=== PATIENT | male | born 1945 | race African-American/Black ===

== ENCOUNTER 2017-01-21 21:17 | Emergency (ER) | payer BC ==
[2017-01-21 22:16] LABS: BASOPHILS 0.3 %; BASOPHILS ABSOLUTE 0.02 10/3/uL (0.0-0.16); EOSINOPHILS 3.6 %; EOSINOPHILS ABSOLUTE 0.28 10/3/uL (0.0-0.53); ER CBC TAT 0 Hrs 03 Mins; HEMOGLOBIN 12.7 g/dL (13.6-17.8); LYMPHOCYTES 26.5 %; LYMPHOCYTES ABSOLUTE 2.09 10/3/uL (0.67-4.30); MEAN CORPUS HGB CONC 32.6 g/dL (32.0-36.0); MEAN CORPUSCULAR HEMOGLOB 28.3 pg (26.0-34.0); MEAN PLATELET VOLUME 8.1 fL (9.2-13.0); MONOCYTES 7.6 %; NEUTROPHILS ABSOLUTE 4.89 10/3/uL (2.02-8.40); PLATELET COUNT 200 10/3/uL (150-400); RBC DISTRIBUTION WIDTH 14.6 % (12.0-16.0); RED CELL COUNT 4.49 10/6/uL (4.7-6.1); WHITE BLOOD CELLS 7.9 10/3/uL (4.5-10.5)
[2017-01-21 22:17] LABS: MANUAL DIFF NO %; MEAN CORPUSCULAR VOLUME 86.9 fL (80-100)
[2017-01-21 22:32] LABS: A/G RATIO 0.8 (0.7-1.9); ALBUMIN 3.2 G/DL (3.5-5.0); BUN (BLOOD UREA NITROGEN) 7 MG/DL (6-23); CALCIUM, SERUM 8.8 MG/DL (8.5-10.4); CHLORIDE, SERUM 102 MMOL/L (96-112); CO2 (CARBON DIOXIDE) 27 MMOL/L (24-34); CREATININE 1.25 MG/DL (0.70-1.30); GFR AFRICAN AMERICAN 68 ML/MIN (>=60); GFR NON AFRICAN AMERICAN 58 ML/MIN (>=60); GLOBULIN 4.2 G/DL (2.5-4.1); POTASSIUM, SERUM 4.4 MMOL/L (3.5-5.3); SGOT(AST) 26 U/L (5-40); SGPT(ALT) 29 U/L (5-65); SODIUM, SERUM 136 MMOL/L (135-148); TOTAL BILIRUBIN 0.4 MG/DL (0-1.2); TOTAL PROTEIN 7.4 G/DL (6.0-8.5)
[2017-01-21 22:33] LABS: ALKALINE PHOSPHATASE 74 U/L (45-117); GLUCOSE, SERUM 108 MG/DL (60-99)
[2017-03-14] MEDS ORDERED: PRILOSEC40 MG PO (14:42)
[2017-03-14] MEDS ORDERED: MOBIC7.5 PO (14:43)
[2017-03-14] MEDS ORDERED: LOFIB160 PO (14:44)
[2017-03-14] MEDS ORDERED: ZOCOR40 PO (14:44)
[2017-03-14] MEDS ORDERED: Z300 PO (14:44)
[2017-03-14] MEDS ORDERED: COZ50 PO (14:45)
[2017-03-14] MEDS ORDERED: B12250T PO (14:46)
[2017-03-14] MEDS ORDERED: FISH-EPA1000 MG PO (14:46)
== END 2017-01-21 23:38 | disposition home or self-care (01) ==
LOC: ER 21:17
PROVIDERS: Emergency Medicine
DX: K59.00 Constipation, unspecified (principal); R05 Cough; I10 Essential (primary) hypertension; Z87.891 Personal history of nicotine dependence; Z88.0 Allergy status to penicillin; Z88.6 Allergy status to analgesic agent
CPT/HCPCS: 74022; 80053; 85025; 99285

== ENCOUNTER 2017-03-21 08:44 | Day surgery (SDC) | payer BC ==
--- NOTE | ~2017-03-21 | EGD ---
EGD REPORT [facility] [address] [place] [address] NAME: ISSA YAN : [birth year] STATUS : REG [facility] [place] PAT#: [id number] AGE: 72 ADM/REG DATE : 03/21/17 MR#: [id number] REPORT SERV DATE: 03/21/17 DICTATED BY: CESARIO LUNDBERG DATE: 03/21/17 REPORT STATUS : Draft TRANSCRIBED BY: [facility] DATE: 03/21/17 Endoscopy Center Patient Name: Issa Yan Date of : 1945 Attending MD: CESARIO LUNDBERG MD Procedure Date No Time: 03/21/2017 Procedure: Upper GI endoscopy Indications: Follow-up of esophageal stenosis, For therapy of esophageal stenosis, Follow-up of Helicobacter pylori Referring MD: SANTA REILLY MD Medicines: Propofol per Anesthesia Complications: No immediate complications. Estimated blood loss: Minimal. Procedure: Pre-Anesthesia Assessment: - After reviewing the risks and benefits, the patient was deemed in satisfactory condition to undergo the procedure. - Prior to the procedure, a History and Physical was performed, and patient medications and allergies were reviewed. The patient's tolerance of previous anesthesia was also reviewed. The risks and benefits of the procedure and the sedation options and risks were discussed with the patient. All questions were answered, and informed consent was obtained. Prior Anticoagulants: The patient has taken no previous anticoagulant or antiplatelet agents. ASA Grade Assessment: II - A patient with mild systemic disease. After reviewing the risks and benefits, the patient was deemed in satisfactory condition to undergo the procedure. After obtaining informed consent, the endoscope was passed under direct vision. Throughout the procedure, the patient's blood pressure, pulse, and oxygen saturations were monitored continuously. The GIF [id number] was introduced through the mouth, and advanced to the third part of duodenum. The upper GI endoscopy was accomplished without difficulty. The patient tolerated the procedure well. Findings: A benign-appearing, intrinsic mild stenosis was found and was traversed. A guidewire was placed under fluoroscopic guidance and the scope was withdrawn. Dilation was performed with a Savary dilator with mild resistance at 48 Fr under fluroscopic visualization. Estimated blood loss was minimal. Repeat endoscopic examination after dilation revealed some heme but no mucosa injury. EGD REPORT [address] [address] NAME: ISAS YAN : [birth year] STATUS : REG [facility]#: [id number] AGE: 72 ADM/REG DATE : 03/21/17 MR#: [id number] REPORT SERV DATE: 03/21/17 DICTATED BY: CESARIO LUNDBERG DATE: 03/21/17 REPORT STATUS : Draft TRANSCRIBED BY: [employer] DATE: 03/21/17 Diffuse moderate inflammation characterized by congestion (edema), erythema and granularity was found in the gastric antrum. Biopsies were taken with a cold forceps for histology. Estimated blood loss: none. Patchy mild inflammation characterized by erosions and erythema was found in the duodenal bulb and in the second part of the duodenum. Impression: - Benign-appearing esophageal stricture. Dilated. - Gastritis. Biopsied. - Duodenitis. Recommendation: - Discharge patient to home (ambulatory). - Clear liquid diet today, full liquid diet tomorrow, soft diet Tuesday, then advance diet as tolerated. - Continue Prilosec (omeprazole) 40 mg daily before breakfast. - Follow-up biopsies to document eradication of H. pylori infection. - Can repeat esophageal dilation as needed for recurrent swallowing issues. - Patient has a contact number available for emergencies. The signs and symptoms of potential delayed complications were discussed with the patient. Return to normal activities tomorrow. Written discharge instructions were provided to the patient. Procedure Code(s): --- Professional --- 63182, Esophagogastroduodenoscopy, flexible, transoral; with insertion of guide wire followed by passage of dilator(s) through esophagus over guide wire 91909, Esophagogastroduodenoscopy, flexible, transoral; with biopsy, single or multiple 48554, Intraluminal dilation of strictures and/or obstructions (eg, esophagus), radiological supervision and interpretation Diagnosis Code(s): --- Professional --- K22.2, Esophageal obstruction K29.70, Gastritis, unspecified, without bleeding K29.80, Duodenitis without bleeding B96.81, Helicobacter pylori [H. pylori] as the cause of diseases classified elsewhere CPT copyright 2013 [employer]. All rights reserved. The codes documented in this report are preliminary and upon club car attendant review may EGD REPORT [facility] [address] [address] NAME: ISSA YAN : [birth year] STATUS : REG [facility] [place] PAT#: [id number] AGE: 72 ADM/REG DATE : 03/21/17 MR#: [id number] REPORT SERV DATE: 03/21/17 DICTATED BY: CESARIO LUNDBERG. DATE: 03/21/17 REPORT STATUS : Draft TRANSCRIBED BY: [employer] DATE: 03/21/17 be revised to meet current compliance requirements. CESARIO LUNDBERG MD 03/21/2017 11:12 AM This report has been signed electronically. Number of Addenda: 0 Note Initiated On: 03/21/2017 10:29 AM Scope Withdrawal Time 0 hours 0 minutes 0 seconds [facility] [place] [id number]
[~2017-03-21 08:44] MED LIST: B12250T PO; COZ50 PO; FISH-EPA1000 MG PO; LOFIB160 PO; MOBIC7.5 PO; PRILOSEC40 MG PO; Z300 PO; ZOCOR40 PO
== END 2017-03-21 23:59 | disposition home or self-care (01) ==
LOC: DMU 08:44
PROVIDERS: Internal Medicine Gastroenterology
PROC: 0D758ZZ Dilation of Esophagus, Via Natural or Artificial Opening Endoscopic (ICD-10-PCS; principal; 2017-03-21 10:00)
PROC: 0DB68ZX Excision of Stomach, Via Natural or Artificial Opening Endoscopic, Diagnostic (ICD-10-PCS; 2017-03-21 10:00)
DX: K29.50 Unspecified chronic gastritis without bleeding (principal); B96.81 Helicobacter pylori [H. pylori] as the cause of diseases classified elsewhere; K22.2 Esophageal obstruction; K29.80 Duodenitis without bleeding; I10 Essential (primary) hypertension; E78.00 Pure hypercholesterolemia, unspecified; M10.9 Gout, unspecified; Z52.4 Kidney donor; Z87.891 Personal history of nicotine dependence; Z90.5 Acquired absence of kidney; Z88.0 Allergy status to penicillin; Z88.6 Allergy status to analgesic agent; Z79.1 Long term (current) use of non-steroidal anti-inflammatories (NSAID); Z79.899 Other long term (current) drug therapy; Z98.49 Cataract extraction status, unspecified eye; Z96.1 Presence of intraocular lens; Z97.2 Presence of dental prosthetic device (complete) (partial); Z98.890 Other specified postprocedural states; Z90.49 Acquired absence of other specified parts of digestive tract
CPT/HCPCS: 76000; 88305; 88342